=== PATIENT | female | born 1955 | race Caucasian/White ===

== ENCOUNTER 2018-12-22 08:55 | Inpatient (IN) | payer OTHER ==
[2018-12-22 09:57] VITALS: BMI 21.2
--- NOTE | 2018-12-22 12:18 | HP ---
CIWA Score Nausea/Vomitin (VOMITNG X 1) Muscle Tremors: 4-Moderate,w/Arms Extend Anxiety: 3 Agitation: 3 Paroxysmal Sweats: 2 Orientation: 0-Oriented Tacttile Disturbances: 0-None Auditory Disturbances: 0-None Visual Disturbances: 0-None Headache: 3-Moderate CIWA-Ar Total Score: 17 - Admission Criteria OASAS Guidelines: Admission for Medically Managed Detox: Requires at least one of the followin. CIWA greater than 12 2. Seizures within the past 24 hours 3. Delirium tremens within the past 24 hours 4. Hallucinations within the past 24 hours 5. Acute intervention needed for co occurring medical disorder 6. Acute intervention needed for co occurring psychiatric disorder 7. Severe withdrawal that cannot be handled at a lower level of care (continued vomiting, continued diarrhea, abnormal vital signs) requiring intravenous medication and/or fluids 8. Admission ROS [facility] - HPI Chief Complaint: Alcohol withdrawal symptoms Allergies/Adverse Reactions: Allergies Allergy/AdvReac Type Severity Reaction Status Date / Time No Known Allergies Allergy Verified 12/22/18 09:49 History of Present Illness: 63 years old male with a long history of alcohol dependence is seeking admission to detox. Patient has been in previous detox and reports 8 years of sobriety. She has history of hypertension, Asthma, COPD, Hep. C, anxiety and depression. She denies suicide attempt and suicidal ideation at this time. Exam Limitations: No Limitations - Ebola screening Have you traveled outside of the country in the last 21 days: No (NN) Have you had contact with anyone from an Ebola affected area: No Do you have a fever: No - Review of Systems Constitutional: Chills, Malaise, Changes in sleep, Weakness EENT: reports: Sinus Pressure Respiratory: reports: No Symptoms reported Cardiac: reports: No Symptoms Reported GI: reports: Nausea, Poor Appetite, Poor Fluid Intake, Vomiting, Abdominal cramping : reports: No Symptoms Reported Musculoskeletal: reports: Back Pain Integumentary: reports: Dryness, Flushing Neuro: reports: Tremors Endocrine: reports: See HPI Hematology: reports: No Symptoms Reported Psychiatric: reports: Anxious, Depressed Other Systems: Reviewed and Negative Patient History - Patient Medical History Hx Anemia: No Hx Asthma: Yes (Albuterol) Hx Chronic Obstructive Pulmonary Disease (COPD): Yes (Not on medication) Hx Cancer: No Hx Cardiac Disorders: No Hx Congestive Heart Failure: No Hx Hypertension: Yes (Lopressor - Noncompliant with medications) Hx Hypercholesterolemia: No Hx Pacemaker: No Hx Seizures: No Hx Dementia: No Hx Diabetes: No Hx Gastrointestinal Disorders: No Hx Liver Disease: No Hx Genitourinary Disorders: No Hx Sexually Transmitted Disorders: No (DENIES) Hx Renal Disease (ESRD): No Hx Thyroid Disease: No Hx Human Immunodeficiency Virus (HIV): No (NEGATIVE HX) Hx Hepatitis C: Yes (NO TREATMENT) Hx Depression: Yes (Not on medication) Hx Suicide Attempt: No (Denies suicidal ideation at this time) Hx Bipolar Disorder: No Hx Schizophrenia: No Other Medical History: ANXIETY - Not on medication - Patient Surgical History Past Surgical History: No Hx Neurologic Surgery: No Hx Cataract Extraction: No Hx Cardiac Surgery: Yes Hx Lung Surgery: No Hx Breast Surgery: No Hx Breast Biopsy: No Hx Abdominal Surgery: Yes (partial hysterectomy at age 43 yrs due to prolapse uterus) Hx Appendectomy: No Hx Cholecystectomy: No Hx Genitourinary Surgery: No Hx Section: No Hx Orthopedic Surgery: No Anesthesia Reaction: No - PPD History Previous Implant?: Yes Documented Results: Negative w/proof Implanted On Prior R Admission?: Yes Date: 12/15/17 PPD to be Administered?: Yes - Reproductive History Patient is a Female of Child Bearing Age (11 -55 yrs old): Yes LMP comment: HYSTERECTOMY AT AGE 43 Patient : No - Smoking Cessation Smoking history: Current every day smoker Have you smoked in the past 12 months: Yes Aproximately how many cigarettes per day: 10 Hx Chewing Tobacco Use: No Initiated information on smoking cessation: Yes 'Breaking Loose' booklet given: 12/22/18 - Substance & Tx. History Hx Alcohol Use: Yes Hx Substance Use: No Substance Use Type: Alcohol Hx Substance Use Treatment: Yes (PATIENT DOES [facility] REMEMBER LAST DETOX FACILITY) - Substances abused Alcohol Substance route: Oral Frequency: Daily Amount used: vodka- 2pts 8can 24oz Age of first use: 16 Date of last use: 12/20/18 Family Disease History - Family Disease History Family Disease History: Heart Disease: Father (), Other: Mother ( , leukemia, Etoh) Admission Physical Exam BHS - Vital Signs Vital Signs: Vital Signs - 24 hr 12/22/18 09:48 Temperature 98.6 F Pulse Rate 113 H Respiratory 18 Rate Blood Pressure 124/93 - Physical General Appearance: Yes: Moderate Distress HEENTM: Yes: Normal ENT Inspection Respiratory: Yes: Lungs Clear, Normal Breath Sounds, No Respiratory Distress Neck: Yes: Supple Breast: Yes: Breast Exam Deferred Cardiology: Yes: Regular Rhythm, Regular Rate Abdominal: Yes: Normal Bowel Sounds Genitourinary: Yes: Within Normal Limits Back: Yes: Normal Inspection Musculoskeletal: Yes: Within Normal Limits Extremities: Yes: Tremors Neurological: Yes: Within Normal Limits Integumentary: Yes: Warm Lymphatic: Yes: Within Normal Limits - Diagnostic (1) COPD (chronic obstructive pulmonary disease) Current Visit: Yes Status: Chronic Qualifiers: COPD type: unspecified COPD Qualified Code(s): J44.9 - Chronic obstructive pulmonary disease, unspecified (2) Alcohol dependence with uncomplicated withdrawal Current Visit: Yes Status: Chronic (3) Depressive disorder Current Visit: Yes Status: Chronic (4) HTN (hypertension) Current Visit: No Status: Chronic Qualifiers: Hypertension type: essential hypertension Qualified Code(s): I10 - Essential (primary) hypertension (5) Hepatitis C Current Visit: Yes Status: Chronic Qualifiers: Viral hepatitis chronicity: chronic Hepatic coma status: without hepatic coma Qualified Code(s): B18.2 - Chronic viral hepatitis C (6) Nicotine dependence Current Visit: Yes Status: Chronic Qualifiers: Nicotine product type: cigarettes (7) Anxiety Current Visit: Yes Status: Acute (8) Asthma Current Visit: Yes Status: Chronic Qualifiers: Asthma severity: mild Asthma persistence: intermittent Cleared for Admission S - Detox or Rehab [facility] Level of Care: Medically Managed Detox Regimen/Protocol: Librium Breathalyzer - Breathalyzer Breathalyzer: 0 Urine Drug Screen - Test Device Lot number: [id number] Expiration date: 08/22/20 - Control Is test valid?: Yes - Results Drug screen NEGATIVE: No Urine drug screen results: BZO-Benzodiazepines Inpatient Rehab Admission - Rehab Decision to Admit Inpatient rehab admission?: No
[2018-12-22] MEDS ORDERED: MAGNESIUM HYDROX 2400MG/30ML ORAL SUSPENSION 30 ML CUP PO PRN (12:40)
[2018-12-22] MEDS ORDERED: MAG HYDROX/AL HYDROX/SIMETH 30 ML UNIT-DOSE CUP PO PRN (12:40)
[2018-12-22] MEDS ORDERED: NICOTINE POLACRILEX 2 MG GUM BUC PRN (12:40)
[2018-12-22] MEDS ORDERED: ACETAMINOPHEN 325 MG TABLET (FP) PO PRN ×2 (12:40)
[2018-12-22] MEDS ORDERED: MAGNESIUM CITRATE 300 ML BOTTLE PO PRN (12:40)
[2018-12-22] MEDS ORDERED: IBUPROFEN 400 MG TABLET (FP) PO PRN (12:40)
[2018-12-22] MEDS ORDERED: MENTHOL/PHENOL 1 EACH UD MM PRN (12:40)
[2018-12-22] MEDS ORDERED: chlordiazePOXIDE HCL 25 MG CAPSULE PO SCH (13:00)
[2018-12-22] MEDS ORDERED: TUBERCULIN PPD 5 TU/0.1ML VIAL ID ONE (13:28)
[2018-12-22] MEDS ORDERED: COLLOIDAL OATMEAL 1 BAR EACH TP PRN (14:07)
[2018-12-22] MEDS: chlordiazePOXIDE HCL 25 MG CAPSULE PO SCH ×2 (18:00→22:54)
[2018-12-22] MEDS: THIAMINE HCL 100 MG TABLET (FP) PO SCH (22:54)
[2018-12-22] MEDS: MELATONIN 5 MG TABLETS PO PRN (22:56)
--- NOTE | 2018-12-23 00:08 | EKG ---
Test Reason : Blood Pressure : / mmHG Vent. Rate : 093 BPM Atrial Rate : 093 BPM P-R Int : 152 ms QRS Dur : 078 ms QT Int : 366 ms P-R-T Axes : 056 018 070 degrees QTc Int : 455 ms NORMAL SINUS RHYTHM SEPTAL INFARCT (CITED ON OR BEFORE 13-DEC-2017) ABNORMAL ECG WHEN COMPARED WITH ECG OF 13-DEC-2017 13:09, NO SIGNIFICANT CHANGE WAS FOUND Confirmed by MD Jenna, Jon ([id number]) on 12/23/2018 12:07:25 AM Referred By: Confirmed By:Jon West MD
[2018-12-23] MEDS: chlordiazePOXIDE HCL 25 MG CAPSULE PO SCH ×4 (05:19→22:13)
[2018-12-23] MEDS ORDERED: chlordiazePOXIDE HCL 25 MG CAPSULE PO SCH (06:00)
[2018-12-23] MEDS: NICOTINE 14 MG/24 HOURS TOPICAL PATCH TD SCH (09:24)
[2018-12-23] MEDS: chlordiazePOXIDE HCL 25 MG CAPSULE PO PRN (09:24)
[2018-12-23] MEDS: PRENATAL VITAMINS W/ FOLIC ACID TABLET (FP) PO SCH (09:25)
--- NOTE | 2018-12-23 13:22 | PN ---
S CIWA - CIWA Score Nausea/Vomitin-No Nausea/No Vomiting Muscle Tremors: 3 Anxiety: 3 Agitation: 4-Moderately Restless Paroxysmal Sweats: 3 Orientation: 0-Oriented Tacttile Disturbances: 0-None Auditory Disturbances: 0-None Visual Disturbances: 0-None Headache: 0-None Present CIWA-Ar Total Score: 13 BHS Progress Note (SOAP) Subjective: sweats shakes interrupted sleep body aches agitation Objective: 12/23/18 13:21 Vital Signs Temperature 96.7 F L 12/23/18 13:07 Pulse Rate 105 H 12/23/18 13:07 Respiratory Rate 17 12/23/18 13:07 Blood Pressure 125/86 12/23/18 13:07 O2 Sat by Pulse Oximetry (%) Laboratory Tests 12/22/18 16:08 POC Urine HCG, Qual Negative rest of labs pending aaox3 ambulating no acute distress Assessment: 12/23/18 13:21 withdrawal sx Plan: continue detox increase fluids pending labs
[2018-12-23] MEDS: hydrOXYzine PAMOATE 25 MG CAPSULE (FP) PO PRN ×2 (14:27→22:14)
[2018-12-23 14:51] LABS: HEMATOCRIT 42.4 % (32.4-45.2); HEMOGLOBIN 13.8 GM/dL (10.7-15.3); MCH 30.6 pg (25.7-33.7); MCHC 32.7 g/dl (32.0-36.0); MEAN CELL VOLUME 93.6 fl (80-96); MEAN PLT VOLUME 9.8 fl (7.5-11.1); PLATELET COUNT 112 K/MM3 (134-434); RBC 4.53 M/mm3 (3.60-5.2); RDW 14.2 % (11.6-15.6); WHITE BLOOD COUNT 3.7 K/mm3 (4.0-10.0)
[2018-12-23 15:17] LABS: ALBUMIN 3.4 g/dl (3.4-5.0); BILIRUBIN,TOTAL 0.8 mg/dL (0.2-1); CALCIUM 8.9 mg/dL (8.5-10.1); CREATININE 0.9 mg/dL (0.55-1.3); POTASSIUM 3.5 mmol/L (3.5-5.1); TOT PROT 7.2 g/dl (6.4-8.2)
[2018-12-23] MEDS: MELATONIN 5 MG TABLETS PO PRN (22:14)
[2018-12-23] MEDS: THIAMINE HCL 100 MG TABLET (FP) PO SCH (22:14)
[2018-12-23] MEDS: METHOCARBAMOL 500 MG TABLET PO PRN (22:14)
[2018-12-24] MEDS: chlordiazePOXIDE HCL 10 MG CAPSULE PO SCH ×4 (05:25→22:11)
[2018-12-24] MEDS ORDERED: chlordiazePOXIDE HCL 10 MG CAPSULE PO SCH (06:00)
[2018-12-24] MEDS: PRENATAL VITAMINS W/ FOLIC ACID TABLET (FP) PO SCH (10:04)
[2018-12-24] MEDS: NICOTINE 14 MG/24 HOURS TOPICAL PATCH TD SCH (10:04)
[2018-12-24] MEDS: METHOCARBAMOL 500 MG TABLET PO PRN (10:06)
[2018-12-24] MEDS: hydrOXYzine PAMOATE 25 MG CAPSULE (FP) PO PRN (11:58)
[2018-12-24] MEDS: chlordiazePOXIDE HCL 25 MG CAPSULE PO PRN (11:58)
--- NOTE | 2018-12-24 12:17 | PN ---
S CIWA - CIWA Score Nausea/Vomitin-No Nausea/No Vomiting Muscle Tremors: 3 Anxiety: 2 Agitation: 3 Paroxysmal Sweats: 2 Orientation: 0-Oriented Tacttile Disturbances: 0-None Auditory Disturbances: 0-None Visual Disturbances: 0-None Headache: 0-None Present CIWA-Ar Total Score: 10 S Progress Note (SOAP) Subjective: sweats shakes interrupted sleep Objective: 12/24/18 12:01 Vital Signs Temperature 97.8 F 12/24/18 09:37 Pulse Rate 83 12/24/18 09:37 Respiratory Rate 17 12/24/18 09:37 Blood Pressure 114/67 12/24/18 09:37 O2 Sat by Pulse Oximetry (%) Laboratory Tests 12/22/18 12/23/18 12/23/18 16:08 10:10 10:10 WBC 3.7 L RBC 4.53 Hgb 13.8 Hct 42.4 MCV 93.6 MCH 30.6 MCHC 32.7 RDW 14.2 Plt Count 112 L D MPV 9.8 Sodium 137 Potassium 3.5 Chloride 101 Carbon Dioxide 26 Anion Gap 10 BUN 23.0 H Creatinine 0.9 Est GFR (CKD-EPI)AfAm 79.42 Est GFR (CKD-EPI)NonAf 68.53 Random Glucose 111 H Calcium 8.9 Total Bilirubin 0.8 AST 45 H ALT 53 Alkaline Phosphatase 104 Total Protein 7.2 Albumin 3.4 POC Urine HCG, Qual Negative labs noted aaox3 ambulating no acute distress Assessment: 12/24/18 12:17 withdrawal sx Plan: continue detox increase fluids
[2018-12-24] MEDS ORDERED: chlordiazePOXIDE HCL 10 MG CAPSULE PO PRN (17:00)
[2018-12-24] MEDS: MELATONIN 5 MG TABLETS PO PRN (22:11)
[2018-12-24] MEDS: THIAMINE HCL 100 MG TABLET (FP) PO SCH (23:10)
[2018-12-25] MEDS ORDERED: chlordiazePOXIDE HCL 10 MG CAPSULE PO SCH (06:00)
[2018-12-25] MEDS: chlordiazePOXIDE HCL 10 MG CAPSULE PO SCH ×2 (06:23→16:49)
[2018-12-25] MEDS: PRENATAL VITAMINS W/ FOLIC ACID TABLET (FP) PO SCH (10:04)
[2018-12-25] MEDS: NICOTINE 14 MG/24 HOURS TOPICAL PATCH TD SCH (10:04)
--- NOTE | 2018-12-25 14:22 | PN ---
S CIWA - CIWA Score Nausea/Vomitin-No Nausea/No Vomiting Muscle Tremors: 4-Moderate,w/Arms Extend Anxiety: 5 Agitation: 4-Moderately Restless Paroxysmal Sweats: 1-Minimal Palms Moist Orientation: 0-Oriented Tacttile Disturbances: 0-None Auditory Disturbances: 0-None Visual Disturbances: 0-None Headache: 0-None Present CIWA-Ar Total Score: 14 BHS Progress Note (SOAP) Subjective: PT REPORTS ANXIETY, IRRITABILITY, TREMORS. REQUESTING FOR MORE LIBRIUM AND VISTARIL. Objective: 12/25/18 14:21 Vital Signs - 24 hr 12/24/18 12/24/18 12/25/18 17:32 22:08 00:30 Temperature 97.7 F 96.6 F L Pulse Rate 85 84 Respiratory 16 16 18 Rate Blood Pressure 123/75 124/77 12/25/18 12/25/18 12/25/18 03:30 08:19 09:37 Temperature 98.4 F 96.9 F L Pulse Rate 92 H 96 H Respiratory 18 18 18 Rate Blood Pressure 151/98 120/50 L 12/25/18 13:21 Temperature 96.3 F L Pulse Rate 91 H Respiratory 18 Rate Blood Pressure 131/79 Laboratory Tests 12/22/18 12/23/18 12/23/18 16:08 10:10 10:10 WBC 3.7 L RBC 4.53 Hgb 13.8 Hct 42.4 MCV 93.6 MCH 30.6 MCHC 32.7 RDW 14.2 Plt Count 112 L D MPV 9.8 Sodium Potassium Chloride Carbon Dioxide Anion Gap BUN Creatinine Est GFR (CKD-EPI)AfAm Est GFR (CKD-EPI)NonAf Random Glucose Calcium Total Bilirubin AST ALT Alkaline Phosphatase Total Protein Albumin POC Urine HCG, Qual Negative RPR Titer TB (QFT) Incubation TB Test (QFT) Nil 0.05 TB Test (QFT) Mitogen >10.00 TB Test (QFT) Antigen 0.06 TB Test (QFT) Negative TB Positive Criteria 12/23/18 12/23/18 10:10 10:10 WBC RBC Hgb Hct MCV MCH MCHC RDW Plt Count MPV Sodium 137 Potassium 3.5 Chloride 101 Carbon Dioxide 26 Anion Gap 10 BUN 23.0 H Creatinine 0.9 Est GFR (CKD-EPI)AfAm 79.42 Est GFR (CKD-EPI)NonAf 68.53 Random Glucose 111 H Calcium 8.9 Total Bilirubin 0.8 AST 45 H ALT 53 Alkaline Phosphatase 104 Total Protein 7.2 Albumin 3.4 POC Urine HCG, Qual RPR Titer Nonreactive TB (QFT) Incubation TB Test (QFT) Nil TB Test (QFT) Mitogen TB Test (QFT) Antigen TB Test (QFT) TB Positive Criteria Assessment: 12/25/18 14:21 WITHDRAWAL SX Plan: CONTINUE DETOX VISTARIL PRN FOR ANXIETY
[2018-12-25] MEDS: BISMUTH SUBSALICYLATE 524 MG/30 ML UD PO PRN (19:14)
[2018-12-25] MEDS: THIAMINE HCL 100 MG TABLET (FP) PO SCH (21:51)
[2018-12-25] MEDS: MELATONIN 5 MG TABLETS PO PRN (21:51)
[2018-12-25] MEDS: METHOCARBAMOL 500 MG TABLET PO PRN (21:52)
[2018-12-26] MEDS: chlordiazePOXIDE HCL 10 MG CAPSULE PO SCH (05:22)
[2018-12-26] MEDS: BISMUTH SUBSALICYLATE 524 MG/30 ML UD PO PRN (06:01)
--- NOTE | 2018-12-26 11:50 | PN ---
S CIWA - CIWA Score Nausea/Vomitin-No Nausea/No Vomiting Muscle Tremors: None Anxiety: 2 Agitation: 0-Normal Activity Paroxysmal Sweats: 2 Orientation: 1-Uncertain about Date Tacttile Disturbances: 0-None Auditory Disturbances: 0-None Visual Disturbances: 0-None Headache: 0-None Present CIWA-Ar Total Score: 5 BHS Progress Note (SOAP) Subjective: c/o anxiety Objective: 12/26/18 11:45 Vital Signs 12/26/18 12/26/18 06:00 09:27 Temperature 97.0 F L 98.2 F Pulse Rate 103 H 79 Respiratory 16 18 Rate Blood Pressure 112/83 127/96 Assessment: 12/26/18 11:45 Pt is verbally responsive and in no acute respiratory distress. Pt has completed her detox protocol and is medically cleared for discharged today. I was informed by RN that the [employer] is not working today due to the holiday. Unable to discharge pt at this time. Discharge order changed to 12/27. Pt agrees to change in discharge plan. 12/26/18 11:59 Plan: Encourage hydration. Give prn vistaril for c/o anxiety.
[2018-12-26] MEDS: NICOTINE 14 MG/24 HOURS TOPICAL PATCH TD SCH (11:57)
[2018-12-26] MEDS: PRENATAL VITAMINS W/ FOLIC ACID TABLET (FP) PO SCH (11:57)
[2018-12-26] MEDS: MELATONIN 5 MG TABLETS PO PRN (22:17)
[2018-12-26] MEDS: THIAMINE HCL 100 MG TABLET (FP) PO SCH (22:55)
--- NOTE | 2018-12-27 08:17 | DS ---
[facility] Detox Discharge Summary Admission Date: 12/22/18 Discharge Date: 12/27/18 - History Present History: Alcohol Dependence - Physical Exam Results Vital Signs: Vital Signs Temperature 96.9 F L 12/27/18 06:43 Pulse Rate 84 12/27/18 06:43 Respiratory Rate 16 12/27/18 06:43 Blood Pressure 142/91 12/27/18 06:43 O2 Sat by Pulse Oximetry (%) - Treatment Hospital Course: Detox Protocol Followed, Detoxed Safely, Responded well, Discharged Condition Good - Medication Discharge Medications: Ambulatory Orders Unobtainable 12/22/18 - Diagnosis (1) Alcohol dependence with uncomplicated withdrawal Current Visit: Yes Status: Chronic (2) COPD (chronic obstructive pulmonary disease) Current Visit: Yes Status: Chronic Qualifiers: COPD type: unspecified COPD Qualified Code(s): J44.9 - Chronic obstructive pulmonary disease, unspecified (3) Hepatitis C Current Visit: Yes Status: Chronic Qualifiers: Viral hepatitis chronicity: chronic Hepatic coma status: without hepatic coma Qualified Code(s): B18.2 - Chronic viral hepatitis C (4) Nicotine dependence Current Visit: Yes Status: Chronic Qualifiers: Nicotine product type: cigarettes - AMA Did Patient Leave Against Medical Advice: No
[2018-12-27] MEDS: PRENATAL VITAMINS W/ FOLIC ACID TABLET (FP) PO SCH (10:06)
[2018-12-27] MEDS: NICOTINE 14 MG/24 HOURS TOPICAL PATCH TD SCH (10:06)
[2018-12-27] MEDS: METHOCARBAMOL 500 MG TABLET PO PRN (10:51)
[2018-12-27 11:42] VITALS: BP 132/77; PULSE 87; TEMP 97.5
== END 2018-12-27 11:59 | disposition home or self-care (01) | DRG 897 ==
LOC: YASAS 08:55 → Y6N 12:53
PROVIDERS: ADMIT Surgery; ATTEND Surgery
PROC: HZ2ZZZZ Detoxification Services for Substance Abuse Treatment (ICD-10-PCS; principal; 2018-12-22)
DX: F10.230 Alcohol dependence with withdrawal, uncomplicated (principal); F17.210 Nicotine dependence, cigarettes, uncomplicated; F41.9 Anxiety disorder, unspecified; F32.9 Major depressive disorder, single episode, unspecified; B18.2 Chronic viral hepatitis C; I10 Essential (primary) hypertension; J45.20 Mild intermittent asthma, uncomplicated; J44.9 Chronic obstructive pulmonary disease, unspecified
CPT/HCPCS: 36415; 71046-TC-FY; 80053; 81025; 85027; 86480; 86593; 93005; 93010